=== PATIENT | female | born 1960 | race Caucasian/White ===

== ENCOUNTER 2023-11-11 20:04 | Emergency (ER) | payer BC | END 2023-11-11 20:46 | disposition home or self-care (01) | LOC: FB.ED 20:04 | DX: S90.211A Contusion of right great toe with damage to nail, initial encounter (principal); Z79.899 Other long term (current) drug therapy; W22.8XXA Striking against or struck by other objects, initial encounter | CPT/HCPCS: 11740; 99283-25 ==